=== PATIENT | female | born 1960 | race Two or more races ===

== ENCOUNTER 2021-01-25 20:19 | Emergency (ER) | payer BC, OTHER ==
[~2021-01-25] VITALS: Ht 157.5 cm; Wt 77.1 kg
[2021-01-25 20:32] VITALS: BP 188/95
[2021-01-25 21:42] LABS: Basophils # (auto) 0.1 10 ^3/uL (0-0.2); Basophils % (auto) 1.4 % (0.0-2.0); Eosinophils # (auto) 0.1 10 ^3/uL (0-0.8); Eosinophils % (auto) 1.7 % (0.0-7.0); Hematocrit 38.7 % (36.0-46.0); Hemoglobin 13.4 g/dL (12.2-16.2); Lymphocytes # (auto) 1.3 10 ^3/uL (0.4-5.4); Lymphocytes % (auto) 35.1 % (10.0-50.0); Mean Corpuscular Hemoglobin 32.4 pg (28.0-32.0); Mean Corpuscular Hgb Conc. 34.6 g/dL (32.0-36.0); Mean Corpuscular Volume 93.6 fL (80.0-100.0); Monocytes # (auto) 0.4 10 ^3/uL (0-1.3); Monocytes % (auto) 11.5 % (0.0-12.0); Neutrophils # (auto) 1.9 10 ^3/uL (1.6-8.6); Neutrophils % (auto) 50.3 % (37.0-80.0); Nucleated Red Blood Cells % 0.1 %; Red Blood Cells 4.14 10^6/uL (4.0-5.20); Red Cell Distribution Width 13.5 % (11.8-14.3); White Blood Cell 3.8 10^3/uL (4.4-10.8)
[2021-01-25 22:13] LABS: Calcium 8.5 mg/dL (8.5-10.1); Chloride 109 mmol/L (98-107); Sodium 141 mmol/L (136-145)
[2021-01-25 22:17] LABS: Albumin 3.7 g/dL (3.4-5.0); Anion Gap 11 (5-15); BUN/Creatinine Ratio 21.4; Blood Urea Nitrogen 15 mg/dL (7-18); Carbon Dioxide 21 mmol/L (21-32); GFR African American 110 mL/min; GFR Non-African American 91 mL/min; Glucose 93 mg/dL (74-106)
[2021-01-25 22:19] LABS: Aspartate Aminotransferase 20 U/L (15-37); Bilirubin, Total 0.2 mg/dL (0.2-1.0); Total Protein 7.4 g/dL (6.4-8.2)
[2021-01-25 22:40] LABS: Alanine Aminotransferase 28 U/L (13-56); Alkaline Phosphatase 86 U/L (45-117)
[2021-01-25 22:41] LABS: Urine Bacteria NONE SEEN /hpf (None Seen); Urine Blood TRACE /uL (Negative); Urine Specific Gravity 1.006 (1.001-1.035); Urine WBC <1 /hpf (0 - 5)
== END 2021-01-26 01:52 | disposition home or self-care (01) ==
LOC: ER 20:19
DX: R20.2 Paresthesia of skin (principal); R51.9 Headache, unspecified; I10 Essential (primary) hypertension; G89.29 Other chronic pain; M54.9 Dorsalgia, unspecified
CPT/HCPCS: 36415; 70450; 71046; 73030; 80053; 81001; 84484; 85025; 93005